=== PATIENT | male | born 1945 | race Caucasian/White ===

== ENCOUNTER 2022-10-12 15:40 | Emergency (ER) | payer MEDICAID, MEDICARE | END 2022-10-12 17:00 | disposition home or self-care (01) | LOC: MW.ED 15:40 | DX: T83.091A Other mechanical complication of indwelling urethral catheter, initial encounter (principal); Z85.46 Personal history of malignant neoplasm of prostate | CPT/HCPCS: 51702; 99282; 99283 ==